=== PATIENT | male | born 1980 | race Caucasian/White ===

== ENCOUNTER → 2018-09-18 | Outpatient (REF) | payer BC ==
[2018-09-18 13:22] LABS: BASO # 0.1 10^3/uL (0.0-0.2); BASO % 0.4 % (0.0-1.0); EOS % 0.3 % (0.0-3.0); HEMATOCRIT 49.9 % (42.0-52.0); HEMOGLOBIN 17.1 g/dl (13.5-17.5); LYMPH # 2.2 10^3/uL (1.5-4.5); LYMPH % 17.7 % (24.0-44.0); MEAN CORPUSCULAR HEMOGLOBIN 29.6 pg (27.0-33.0); MEAN CORPUSCULAR HGB CONC 34.3 g/dl (32.0-36.5); MEAN CORPUSCULAR VOLUME 86.3 fl (80.0-96.0); MONO # 1.1 10^3/uL (0.0-0.8); MONO % 8.8 % (0.0-5.0); NEUTROPHILS # 8.8 10^3/uL (1.8-7.7); NEUTROPHILS % 72.6 % (36.0-66.0); PLATELET COUNT, AUTOMATED 202 10^3/uL (150-450); RED BLOOD COUNT 5.78 10^6/uL (4.30-6.10); WHITE BLOOD COUNT 12.2 10^3/uL (4.0-10.0)
[2018-09-18 13:25] LABS: RHEUMATOID FACTOR QUANT < 10.0 IU/ML (<15.0); URIC ACID 4.1 MG/DL (3.5-7.2)
[2018-09-18 14:41] LABS: ERYTHROCYTE SEDIMENTATION RATE 10 mm/hr (0-15)
[2018-09-20 14:47] LABS: ANTINUCLEAR ANTIBODIES DIRECT Negative (Negative); Lyme Disease IgG/IgM Antibodie <0.91 ISR (0.00-0.90); Lyme Disease IgM Ab Quantitati <0.80 index (0.00-0.79)
== END ==
LOC: M LAB REF 11:30
PROVIDERS: ATTEND Physician Assistant
DX: M79.10 Myalgia, unspecified site (principal)

== ENCOUNTER → 2018-09-23 | Outpatient (CLI) | payer BC ==
--- NOTE | 2018-09-23 12:16 | REP ---
Clinical: Abnormal pain and sensations. Technique: AP, lateral, bilateral oblique and coned-down views of the lumbosacral spine. Findings: Early advanced degenerative changes involving the visualized lower thoracic and upper lumbar spine including endplate sclerosis, osteophytosis and disc space narrowing primarily involving T10-11 through L2-3. Mild hypertrophic facet changes with endplate sclerosis also identified at L5-S1. No evidence for acute fracture / compression injury. Alignment is maintained. Impression: Multilevel degenerative spondylosis primarily involving the visualized lower thoracic and upper lumbar spine. Electronically Signed by Fly Gant MD 09/23/2018 12:08 P
== END ==
LOC: M ADAMS 10:31
PROVIDERS: ATTEND Physician Assistant Medical
DX: R20.9 Unspecified disturbances of skin sensation (principal); M47.897 Other spondylosis, lumbosacral region

== ENCOUNTER → 2018-09-27 | Outpatient (CLI) | payer BC ==
[2018-09-27 10:44] LABS: HEMATOCRIT 46.5 % (42.0-52.0); HEMOGLOBIN 15.8 g/dl (13.5-17.5); MEAN CORPUSCULAR HEMOGLOBIN 29.4 pg (27.0-33.0); MEAN CORPUSCULAR VOLUME 86.6 fl (80.0-96.0); PLATELET COUNT, AUTOMATED 305 10^3/uL (150-450); RED BLOOD COUNT 5.37 10^6/uL (4.30-6.10); WHITE BLOOD COUNT 10.1 10^3/uL (4.0-10.0)
[2018-09-27 11:06] LABS: BLOOD UREA NITROGEN 16 MG/DL (7-18); CALCIUM LEVEL 8.9 MG/DL (8.5-10.1); CARBON DIOXIDE LEVEL 26 MEQ/L (21-32); CHLORIDE LEVEL 101 MEQ/L (98-107); CREATININE FOR GFR 0.94 MG/DL (0.70-1.30); GLOMERULAR FILTRATION RATE > 60.0 (>60); GLUCOSE, FASTING 104 MG/DL (70-100); POTASSIUM SERUM 4.7 MEQ/L (3.5-5.1); SODIUM LEVEL 136 MEQ/L (136-145)
== END ==
LOC: M LAB 10:14
PROVIDERS: ATTEND Physician Assistant Medical
DX: M79.606 Pain in leg, unspecified (principal)

== ENCOUNTER → 2019-04-23 | Outpatient (REF) | payer BC ==
[2019-04-23 23:13] LABS: CHLAMYDIA DNA AMPLIFICATION NEGATIVE (NEGATIVE); GC DNA AMPLIFICATION NEGATIVE (NEGATIVE)
== END ==
LOC: M LAB REF 15:30
PROVIDERS: ATTEND Physician Assistant
DX: R30.0 Dysuria (principal)

== ENCOUNTER 2021-05-12 19:18 | Emergency (ER) | payer BC ==
[~2021-05-12] VITALS: Ht 182.9 cm; Wt 142.3 kg
[2021-05-12 19:19] VITALS: BP 132/79
[2021-05-12] MEDS ORDERED: PANT40TA29 PO (20:27)
[2021-05-12] MEDS ORDERED: BUPR15TASR PO (20:27)
[2021-05-12] MEDS ORDERED: CITA20TA7 PO (20:27)
== END 2021-05-12 21:50 | disposition left against medical advice (07) ==
LOC: M ED 19:18
DX: Z53.21 Procedure and treatment not carried out due to patient leaving prior to being seen by health care provider (principal)

== ENCOUNTER 2025-05-18 01:40 | Emergency (ER) | payer BC ==
[~2025-05-18 01:40] MED LIST: BUPR15TASR PO; CITA20TA7 PO; PANT40TA29 PO
[2025-05-18 01:50] VITALS: BP 141/86; TEMP 98.6; O2SAT 95
[2025-05-18] MEDS ORDERED: CLIN-250 (01:59)
[2025-05-18] MEDS ORDERED: JARD1TAB (01:59)
[2025-05-18] MEDS ORDERED: WARF-23 (01:59)
[2025-05-18] MEDS ORDERED: BUME2TAB3 (01:59)
[2025-05-18] MEDS ORDERED: ATOR40TA75 (01:59)
[2025-05-18] MEDS ORDERED: METO1TAB33 (01:59)
== END 2025-05-18 03:23 | disposition left against medical advice (07) ==
LOC: M ED 01:40
DX: Z53.21 Procedure and treatment not carried out due to patient leaving prior to being seen by health care provider (principal)

== ENCOUNTER → 2025-05-25 | Outpatient (REF) | payer BC ==
[~2025-05-25] MED LIST changes: +ATOR40TA75; +BUME2TAB3; +CLIN-250; +JARD1TAB; +METO1TAB33; +WARF-23
[2025-05-25 18:27] LABS: ALT/SGPT 91 U/L (7.0-40); AST/SGOT 48 U/L (<34); CALCIUM LEVEL 8.8 MG/DL (8.5-10.1); CARBON DIOXIDE LEVEL 26 MMOL/L (20-31); CHLORIDE LEVEL 105 MMOL/L (98-107); CREATININE FOR GFR 0.89 MG/DL (0.70-1.30); GLOMERULAR FILTRATION RATE > 90.0 (>60); POTASSIUM SERUM 4.0 MMOL/L (3.5-5.1); SODIUM LEVEL 137 MMOL/L (136-145)
== END ==
LOC: M LAB REF 17:24
PROVIDERS: ATTEND Nurse Practitioner Family
DX: R79.89 Other specified abnormal findings of blood chemistry (principal)